=== PATIENT | female | born 2000 ===

== ENCOUNTER → 2020-03-23 20:37 | Outpatient (ROUT) | payer OTHER, SELFPAY ==
[2020-03-23 20:51] LABS: UR Morphine/Opiate cutoff 300 Negative (Negative); Ur Creatinine Normal (Normal); Ur Specific Gravity Normal (Normal); Urine Amphetamines Negative (Negative); Urine Barbiturates Negative (Negative); Urine Benzodiazepines Negative (Negative); Urine Cocaine Negative (Negative); Urine MDMA Negative (Negative); Urine Methadone Negative (Negative); Urine Methamphetamines Negative (Negative); Urine Oxycodone Negative (Negative); Urine Phencyclidine Negative (Negative); Urine Tetrahydrocannabinol Positive (Negative); Urine Tricyclic Antidepressant Negative (Negative); Urine pH Normal (Normal)
== END ==
PROVIDERS: Visit Provider Nurse Practitioner Obstetrics & Gynecology
DX: O99.322 Drug use complicating pregnancy, second trimester (principal); Z13.1 Encounter for screening for diabetes mellitus; Z3A.21 21 weeks gestation of pregnancy
CPT/HCPCS: 80305

== ENCOUNTER → 2020-07-04 16:03 | Outpatient (ROUT) | payer OTHER, SELFPAY | PROVIDERS: Visit Provider Nurse Practitioner Obstetrics & Gynecology | DX: Z34.90 Encounter for supervision of normal pregnancy, unspecified, unspecified trimester (principal); Z36.85 Encounter for antenatal screening for Streptococcus B; Z3A.36 36 weeks gestation of pregnancy | CPT/HCPCS: 87081 ==

== ENCOUNTER 2020-07-07 11:09 | Observation (INO) | payer OTHER, MEDICAID, SELFPAY ==
[2020-07-07 12:07] LABS: Add Manual Diff / Slide Review NO; Basophils Absolute Auto 100 /uL (0-100); Basophils Percent Auto 0.6 % (0-2); Eosinophils Absolute Auto 200 /uL (0-450); Eosinophils Percent Auto 1.4 % (2-4); Hematocrit 34.7 % (36-46); Hemoglobin 11.9 g/dL (12.0-16.0); Lymphocytes Absolute Auto 2200 /uL (1100-4500); Lymphocytes Percent Auto 17.6 % (25-40); Mean Corpuscular HGB Conc 34.3 % (30-36); Mean Corpuscular Hemoglobin 32.3 PG (26-34); Mean Corpuscular Volume 94.2 fL (80-100); Monocytes Absolute Auto 900 /uL (0-900); Monocytes Percent Auto 7.3 % (3-14); Neutrophils Absolute Auto 9000 /uL (1500-7000); Neutrophils Percent Auto 73.1 % (50-75); Platelet Count 182 X10^3/uL (150-400); Red Blood Cell Count 3.68 X10^6/uL (4.0-5.2); Red Cell Distribution Width 13.2 % (11.6-14.8); White Blood Cell Count 12.3 X10^3/uL (4.5-11.0)
[2020-07-07 13:19] LABS: COVID19 -Nasal RAPID Negative (Negative)
--- NOTE | 2020-07-07 14:45 | P.TNLD_ITS ---
Visit Information Visit Information Date of evaluation: 07/07/20 Primary OB Provider: Marla Irving On-call OB Provider: Lexis Chavez Reason for Evaluation: Yes other Comments/Additional reasons for admission: This patient is a 19yo @37+0 in complete breech presentation confirmed today on US, presenting for attempted external cephalic version. Patient has a posterior placenta, otherwise uncomplicated though late presentation to care. No complaints obstetrical or otherwise today. Discussed risk of placental abruption, cord accident, need for emergent delivery with ECV vs. risks of primary CS for breech if unsuccessful or if ECV not attempted. Patient vocalized understanding, all questions answered, informed consent signed. Vital Signs Vital Signs: 120/79, HR 67 Review of Systems Constitutional Constitutional: Reports system reviewed and no additional complaints, except as documented Cardiovascular Cardiovascular: Reports system reviewed and no additional complaints, except as documented Respiratory Respiratory: Reports system reviewed and no additional complaints, except as documented Gastrointestinal Gastrointestinal: Reports system reviewed and no additional complaints, except as documented Exam Const General: cooperative, healthy appearing and comfortable GI Palpation: soft and No tender Objective Labs Result Diagrams: 07/07/20 11:59 Labs: Laboratory Results - last 24 hr 07/07/20 07/07/20 07/07/20 11:59 11:59 11:59 WBC 12.3 H RBC 3.68 L Hgb 11.9 L Hct 34.7 L MCV 94.2 MCH 32.3 MCHC 34.3 RDW 13.2 Plt Count 182 Neut % (Auto) 73.1 Lymph % (Auto) 17.6 L [place] % (Auto) 7.3 Eos % (Auto) 1.4 L Baso % (Auto) 0.6 Neut # (Auto) 9000 H Lymph # (Auto) 2200 [place] # (Auto) 900 Eos # (Auto) 200 Baso # (Auto) 100 SARS-CoV-2 (PCR) Negative Blood Type A Positive Antibody Screen Negative Evaluation Evaluation Baseline heart rate: 130 Variability: Moderate (11-25) monitor accelerations: Present Monitor Decelerations: Absent Category of Tracing: Reactive Status: Category l Laboratory results: Laboratory Tests 07/07/20 07/07/20 07/07/20 11:59 11:59 11:59 WBC 12.3 H RBC 3.68 L Hgb 11.9 L Hct 34.7 L MCV 94.2 MCH 32.3 MCHC 34.3 RDW 13.2 Plt Count 182 Neut % (Auto) 73.1 Lymph % (Auto) 17.6 L [place] % (Auto) 7.3 Eos % (Auto) 1.4 L Baso % (Auto) 0.6 Neut # (Auto) 9000 H Lymph # (Auto) 2200 [place] # (Auto) 900 Eos # (Auto) 200 Baso # (Auto) 100 SARS-CoV-2 (PCR) Negative Blood Type A Positive Antibody Screen Negative Diagnosis, Plan/Disposition Plan/Disposition Plan: ECV unsuccesful. Patient had cat 1 monitoring x1 hour, precautions for return discussed at length, patient encouraged to call. Discussed CS at 39 weeks if no spontaneous version. OB Disposition: home
--- NOTE | 2020-07-07 14:51 | PM.PROC.1 ---
Procedures Date/Time Date of procedure: 07/07/20 Time of procedure: 13:21 General Procedure description: After informed consent was obtained, the patient underwent reassuring monitoring and had an IV placed and labs drawn. She was placed in the supine position, and position was confirmed with bedside ultrasound. The abdomen was covered in mineral oil, and ECV attempted x3 with minimal movement of vertex or rump. Further attempts were not thought to have a good chance of success, and the attempt was abandoned. position was again confirmed by US. The patient remained on L&D for monitoring.
== END 2020-07-07 15:00 | disposition home or self-care (01) ==
PROVIDERS: Nurse Practitioner Obstetrics & Gynecology; Admitting Provider Specialist; Referring Provider Specialist; Visit Provider Specialist
DX: O32.1XX0 Maternal care for breech presentation, not applicable or unspecified (principal); Z3A.37 37 weeks gestation of pregnancy; Z20.822 Contact with and (suspected) exposure to COVID-19
CPT/HCPCS: 59025; 59050; 59412; 76815; 85025; 86850; 86900; 86901; 87635; C9803; G0378; G0379

== ENCOUNTER 2020-07-23 11:35 | Inpatient (IN) | payer OTHER, MEDICAID, SELFPAY ==
[2020-07-23 12:20] LABS: Add Manual Diff / Slide Review NO; Basophils Absolute Auto 100 /uL (0-100); Basophils Percent Auto 0.8 % (0-2); Eosinophils Absolute Auto 100 /uL (0-450); Eosinophils Percent Auto 1.3 % (2-4); Hematocrit 35.1 % (36-46); Lymphocytes Absolute Auto 2100 /uL (1100-4500); Lymphocytes Percent Auto 17.8 % (25-40); Mean Corpuscular HGB Conc 34.1 % (30-36); Mean Corpuscular Volume 93.9 fL (80-100); Monocytes Absolute Auto 1000 /uL (0-900); Monocytes Percent Auto 8.4 % (3-14); Neutrophils Absolute Auto 8500 /uL (1500-7000); Neutrophils Percent Auto 71.7 % (50-75); Platelet Count 208 X10^3/uL (150-400); Red Blood Cell Count 3.74 X10^6/uL (4.0-5.2); Red Cell Distribution Width 13.3 % (11.6-14.8); White Blood Cell Count 11.9 X10^3/uL (4.5-11.0)
[2020-07-23] MEDS: LACTATED RINGERS 1,000 ML 300 ML IV (12:44)
[2020-07-23 12:49] VITALS: BP 128/84
--- NOTE | 2020-07-23 13:05 | P.HPOB_ITS ---
OB HPI Date/Time Date of admission: 07/23/20 Date Patient Seen: 07/23/20 Time Patient Seen: 11:30 History of Present Condition Chief complaint: OBSERVATION : 1 Para: 0 Estimated Date of Delivery: 07/28/20 Estimated Gestational Age (weeks): 39 Narrative: Magui Barry is a 19-year-old at 39 weeks 2 days with a fetus in known breech presentation status post failed external cephalic version, admitted for scheduled primary section. She reports feeling well today with no obstetrical symptoms or other concerns. presentation was confirmed today to be complete breech. The patient was cared for throughout her by Marla Irving CNM, and presented for care at 21 weeks 6 days. There were no complications in the and she has no other contributory medical or surgical history, though she has continued daily marijuana and tobacco use. She has had otherwise negative u tox screens during the . Indications Operative indications ( section): breech presentation History of Present Dating criteria: LMP confirmed by 2nd trimester US Obstetrical complications: none Medical complications: none Preadmission Labs Blood type: A (+) positive -: Antibody screen: negative, GBS status: negative, HBsAG: negative, HIV: negative and RPR/VDLR: negative -: Chlamydia screen: not detected and Gonorrhea screen: not detected -: Rubella: immune Integrated screen: declined Urine: mixed gram positive hina 1 hr GTT: 103 Evaluation Evaluation Baseline heart rate: 120 Variability: Moderate (11-25) monitor accelerations: Present Monitor Decelerations: Absent Category of Tracing: Reactive Status: Category l Laboratory results: Laboratory Tests 07/23/20 12:05 WBC 11.9 H RBC 3.74 L Hgb 12.0 Hct 35.1 L MCV 93.9 MCH 32.0 MCHC 34.1 RDW 13.3 Plt Count 208 Neut % (Auto) 71.7 Lymph % (Auto) 17.8 L [place] % (Auto) 8.4 Eos % (Auto) 1.3 L Baso % (Auto) 0.8 Neut # (Auto) 8500 H Lymph # (Auto) 2100 [place] # (Auto) 1000 H Eos # (Auto) 100 Baso # (Auto) 100 PFSH Social History Smoking Status: Current every day smoker Meds Home Medications and Allergies Home Medications Medication Instructions Recorded Confirmed Type No Known Home Medications 07/16/20 07/16/20 History Allergies Allergy/AdvReac Type Severity Reaction Status Date / Time No Known Drug Allergies Allergy Unverified 07/16/20 15:06 Review of Systems Constitutional Constitutional: Reports system reviewed and no additional complaints, except as documented Cardiovascular Cardiovascular: Reports system reviewed and no additional complaints, except as documented Respiratory Respiratory: Reports system reviewed and no additional complaints, except as documented Gastrointestinal Gastrointestinal: Reports system reviewed and no additional complaints, except as documented Genitourinary Genitourinary: Reports system reviewed and no additional complaints, except as documented Neurologic Neurologic: Reports system reviewed and no additional complaints, except as documented Exam Vital Signs (past 8 hours): - 07/23/20 12:49 Blood Pressure 128/84 Const General: cooperative, healthy appearing and comfortable Resp Effort & Inspection: normal respiratory effort Auscultation: clear to auscultation bilaterally Cardio Rate: regular rate Rhythm: regular rhythm GI Palpation: soft and No tender Extrem General: normal to inspection Objective Labs Result Diagrams: 07/23/20 12:05 Labs: Laboratory Results - last 24 hr 07/23/20 12:05 WBC 11.9 H RBC 3.74 L Hgb 12.0 Hct 35.1 L MCV 93.9 MCH 32.0 MCHC 34.1 RDW 13.3 Plt Count 208 Neut % (Auto) 71.7 Lymph % (Auto) 17.8 L [place] % (Auto) 8.4 Eos % (Auto) 1.3 L Baso % (Auto) 0.8 Neut # (Auto) 8500 H Lymph # (Auto) 2100 [place] # (Auto) 1000 H Eos # (Auto) 100 Baso # (Auto) 100 Assessment and Plan Assessment and Plan Assessment and Plan narrative: This patient is admitted for a primary section for complete breech presentation, with no other symptoms or concerns. She presented late for care and has continued tobacco and marijuana use daily, but has had no other obstetrical or medical complications. We discussed risks and benefits of surgery both last week and today, including risk of damage to bowel and bladder, bleeding requiring transfusion, infection, and placental abnormalities in future pregnancies. We also discussed risks of vaginal breech delivery. Informed consent was obtained and consents had previously been signed. Time Spent with Patient Total time spent with greater than 50% in coordination of care (as documented) at patient's floor/unit and/or counseling patient:: 15-24 minutes
[2020-07-23] MEDS: CEFAZOLIN 2 GM/100 ML FROZ.PIGGY IV (13:44)
--- NOTE | 2020-07-23 14:06 | SUR.OPER ---
Supine on Padded OR bed, head on pillow, safety belt at thigh, arms secured on padded arm boards at <90 degrees abduction. Bump under right buttock. Legs uncrossed with pillow under knees, gel pad to heels, tape over blanket to lower legs.
--- NOTE | 2020-07-23 14:11 | SUR.OPER ---
FHT 120 LIVE FEMALE BORN AT 1358
[2020-07-23 14:49] VITALS: BP 132/80; PULSE 80; RESP 12; O2SAT 99
[2020-07-23 14:53] VITALS: BP 140/86; PULSE 75; RESP 12; O2SAT 100
[2020-07-23 14:58] VITALS: BP 135/82; PULSE 73; RESP 12; O2SAT 100
[2020-07-23 15:05] VITALS: BP 137/80; PULSE 77; RESP 14; O2SAT 100
--- NOTE | 2020-07-23 16:19 | P.OP_ITS ---
Operative Date/Time/Diagnoses Date of procedure: 07/23/20 Time of procedure: 16:20 Pre-op diagnosis: Breech fetus Post-op diagnosis: same Procedure & Clinicians Procedure: Primary section Same procedure as scheduled: Yes Indications: Breech fetus Surgeon: Lexis Chavez Money Market Clerk: Chante Kapoor Reason for Money Market Clerk: Assistance with retraction, delivery of fetus Anesthesia Type: Spinal Operative Notes Findings: Normal uterus, tubes, ovaries. Female in complete breech presentation, Apgars 9 and 9, weight 2557 g Closure Type: primary Intraoperative meds administered: Acetaminophen, Ketorolac and Pitocin Applied: Catheter Estimated Blood Loss (mL): 750 Blood products transfused: none Procedure in detail: EBL: 750 cc Fluids: 900 cc lactated Ringer's UOP: 300 cc clear yellow urine Procedures: The patient was taken to the operating room where spinal anesthesia was placed and found to be adequate. She was prepped and draped in the normal sterile fashion in the dorsal supine position with a leftward tilt. A Pfannenstiel skin incision was made with a scalpel and carried through to the underlying layer of fascia. The fascia was incised in the midline and the incision extended laterally with Singer scissors. The superior aspect of this incision was grasped with Nithya clamps, elevated, and the underlying rectus muscles dissected off bluntly and with the curved Singer scissors. Attention was then turned to the inferior aspect of this incision which, in a similar fashion, was grasped, tented up with the Nithya clamps, and the rectus muscles dissected off bluntly and with the curved Singer scissors. The rectus muscles were then in the midline, and the peritoneum identified, tented up, and entered sharply with Metzenbaum scissors. The peritoneal incision was extended superiorly and inferiorly with good visualization of the bladder. The bladder blade was inserted and the vesicouterine peritoneum identified, grasped with pickups, and entered sharply with the Metzenbaum scissors. This incision was extended laterally, and the bladder flap created digitally. The bladder blade was then reinserted and the lower uterine segment incised in transverse fashion with the scalpel. The uterine incision was bluntly extended laterally. The bladder blade was removed, and the was delivered leave you the usual breech maneuvers. After 30 seconds of delayed cord clamping, the cord was clamped and cut. The nose and mouth were suctioned as needed with a bulb syringe, and the was handed off to awaiting pediatricians. The placenta was then removed spontaneously, and the uterus was exteriorized and cleared of all clots and debris. The uterine incision was repaired with 1-0 chromic in a running, locked fashion and a 2nd layer of the same suture was used to obtain excellent hemostasis. The uterus was returned to the abdomen, and the gutters were cleared of all clots and debris. The bladder flap was closed with 2-0 Vicryl in a running fashion, the peritoneum was closed with 3-0 Vicryl, and the fascia reapproximated with 0 Vicryl in a running fashion. The subcutaneous layer was placed with 3 0 Vicryl in an interrupted fashion and the skin was closed with 4-0 biosyn in a running fashion. The patient tolerated the procedure well. sponge lap and needle counts were correct x2. 2 g of Ancef were given at commencement of the case. The patient was taken to the recovery room in stable condition. Complications: none Only Baby Rosalie: Gender: Male Presentation: breech Details: complete Placental Delivery Description: Manual Removal Cord Vessel Description: 3 Vessels score (1 min): 9 score (5 min): 9 weight: 5 lb 10 oz Post-operative Condition: stable Disposition: PACU Aftercare: routine postop
[2020-07-23] MEDS: LACTATED RINGERS 1,000 ML 100 ML IV (18:59)
[2020-07-23] MEDS: METOCLOPRAMIDE 10 MG/2 ML INJ IV (18:59)
[2020-07-23] MEDS: KETOROLAC 30 MG/ML VIAL IV (21:11)
[2020-07-24] MEDS: KETOROLAC 30 MG/ML VIAL IV ×2 (03:06→09:07)
[2020-07-24 05:52] LABS: Add Manual Diff / Slide Review NO; Basophils Absolute Auto 0 /uL (0-100); Basophils Percent Auto 0.3 % (0-2); Eosinophils Absolute Auto 100 /uL (0-450); Eosinophils Percent Auto 1.4 % (2-4); Hematocrit 29.2 % (36-46); Hemoglobin 10.2 g/dL (12.0-16.0); Lymphocytes Absolute Auto 2100 /uL (1100-4500); Lymphocytes Percent Auto 19.9 % (25-40); Mean Corpuscular HGB Conc 35.1 % (30-36); Mean Corpuscular Hemoglobin 33.1 PG (26-34); Mean Corpuscular Volume 94.3 fL (80-100); Monocytes Absolute Auto 900 /uL (0-900); Monocytes Percent Auto 9.1 % (3-14); Neutrophils Absolute Auto 7200 /uL (1500-7000); Neutrophils Percent Auto 69.3 % (50-75); Platelet Count 144 X10^3/uL (150-400); Red Blood Cell Count 3.09 X10^6/uL (4.0-5.2); Red Cell Distribution Width 13.4 % (11.6-14.8); White Blood Cell Count 10.4 X10^3/uL (4.5-11.0)
[2020-07-24 08:39] VITALS: BP 128/84
[2020-07-24] MEDS: OXYCODONE IR 5 MG TABLET PO ×2 (09:07→20:29)
[2020-07-24] MEDS: DOCUSATE 250 MG CAPSULE PO (09:07)
--- NOTE | 2020-07-24 09:30 | PM.OBPN.1 ---
Subjective - OB Subjective Patient comments: no complaints, pain well controlled and tolerating diet baby status: doing well and nursing well feeding status: exclusively breast feeding Narrative: Patient POD#1 s/p scheduled CS for breech presenttation. Reports feeling well with good pain control this AM. Tolerating PO, ambulating, voiding, mild lochia. Has not yet passed flatus but no bloating or nausea. Date Patient Seen: 07/24/20 Time Patient Seen: 09:31 Exam Vital Signs (past 8 hours): 128/64, HR 100 07/24/20 08:39 Blood Pressure 128/84 Oxygen Delivery Method Room Air Const General: cooperative, healthy appearing and comfortable Resp Effort & Inspection: normal respiratory effort Auscultation: clear to auscultation bilaterally Cardio Rate: regular rate Rhythm: regular rhythm GI Inspection: incision (c/d/i, aquacell present) Palpation: soft and No tender Extrem General: normal to inspection Objective Labs Result Diagrams: 07/24/20 05:40 Labs: Laboratory Results - last 24 hr 07/24/20 05:40 WBC 10.4 RBC 3.09 L Hgb 10.2 L Hct 29.2 L MCV 94.3 MCH 33.1 MCHC 35.1 RDW 13.4 Plt Count 144 L Neut % (Auto) 69.3 Lymph % (Auto) 19.9 L [place] % (Auto) 9.1 Eos % (Auto) 1.4 L Baso % (Auto) 0.3 Neut # (Auto) 7200 H Lymph # (Auto) 2100 [place] # (Auto) 900 Eos # (Auto) 100 Baso # (Auto) 0 Assessment & Plan Plan day: 1 plan OB: routine postop care Comments: Patient recovering well, meeting postoperative goals appropriately. Ambulation encouraged. Discussed discharge instructions, anticipating discharge tomorrow. Time Spent With Patient Time: Total time spent is greater than 50% in coordination of care (as documented) at patient's floor/unit and/or counseling patient: Time with patient: 15-24 minutes
[2020-07-24] MEDS: IBUPROFEN 600 MG TABLET PO ×2 (15:03→20:29)
[2020-07-24] MEDS: ACETAMINOPHEN 325 MG TABLET 650 MG PO ×2 (15:03→20:30)
[2020-07-25] MEDS: OXYCODONE IR 5 MG TABLET PO ×3 (00:57→12:28)
[2020-07-25] MEDS: ACETAMINOPHEN 325 MG TABLET 650 MG PO ×2 (03:51→10:09)
[2020-07-25] MEDS: IBUPROFEN 600 MG TABLET PO ×2 (03:52→10:09)
[2020-07-25] MEDS: DOCUSATE 250 MG CAPSULE PO (07:46)
--- NOTE | 2020-08-09 11:14 | PM.OBDS.1 ---
Discharge Providers Provider Date of admission: 07/23/20 11:35 Discharge Date: 07/25/20 Primary care physician: Doctor Flynn MD Consults: 07/23/20 15:01 Consult to Security Management Specialist Routine Comment: 07/23/20 16:13 Consult to Security Management Specialist Routine Comment: Discharge provider: Lexis Chavez MD Summary Hospital Course Date Patient Seen: 07/23/20 Time Patient Seen: 08:15 Diagnoses: Primary section Hospital Course: This patient was admitted for primary section in the setting of breech presentation. Surgery was uncomplicated, and she was delivered of a healthy baby boy without complication. Her postoperative course was uncomplicated, and she was discharged on postop day 2 with routine precautions and follow-up. Peripartum Data Infant Delivery Method: Section complications: none [place] 1: Gender: Male Disposition of : home Status at Discharge Cognitive/behavioral status at discharge: oriented Functional status at discharge: independent ambulation Overall status at discharge: patient is progressing back to baseline Time Spent with Patient Time attestation: Total time spent providing and/or coordinating discharge services: Time spent: Less than 30 minutes Objective Labs Result Diagrams: 07/24/20 05:40 Exam Vital Signs (past 8 hours): Vital signs stable Oxygen Delivery Method Room Air Const General: cooperative, healthy appearing, comfortable and well groomed Resp Effort & Inspection: normal respiratory effort Auscultation: clear to auscultation bilaterally Cardio Rate: regular rate Rhythm: regular rhythm GI Inspection: incision (C/D/I) Palpation: soft and No tender (Fundus firm, below U) Extrem General: normal to inspection Discharge Plan Discharge Plan Patient Disposition: Home Provider Discharge Comment: Call with fever, chills, redness or drainage around the incision, or bleeding vaginally more than a pad in an hour Tylenol 650 mg every 6 hours Ibuprofen 600 mg every 6 hours 6 Stool softeners as needed until bowel returned to normal Discharge orders & Medications Prescriptions: New oxycodone 5 mg tablet 5 mg PO Q6H PRN (Reason: pain) Qty: 14 RF: 0 No Action No Known Home Medications RF: 0 Follow up/Referrals: Chante Kapoor MD [Physician] - 1 Week Diet/Activity/Treatments Diet: Regular Activity: Nothing in the vagina for 6 weeks. Avoid lifting more than 10 lbs for 6 weeks. If you have increasing bleeding, fevers, chills, nausea, vomiting, persistent headaches or visual changes, or any other symptoms or concerns, call the office or come to the emergency room. Skin/Wound/Dressing Care Report to your healthcare provider any signs of infection, such as:: chills, fever, increased pain, unusual drainage and unusual redness Dressing: Do not remove for 1 week Visit Report/Discharge Packet Instructions: DI for , DI for Prescription Opioid Use Stand Alone Forms: Discharge: Care Discharge Data Primary Care Provider: Miscellaneous,Doctor
== END 2020-07-25 12:43 | disposition home or self-care (01) | DRG 787 ==
PROVIDERS: Admitting Provider Obstetrics & Gynecology; Referring Provider Obstetrics & Gynecology; Visit Provider Obstetrics & Gynecology
PROC: 10D00Z1 Extraction of Products of Conception, Low, Open Approach (ICD-10-PCS; CPT 59514; principal; 2020-07-23 13:30)
DX: O64.1XX0 Obstructed labor due to breech presentation, not applicable or unspecified (principal); O99.324 Drug use complicating childbirth; F12.90 Cannabis use, unspecified, uncomplicated; O99.334 Smoking (tobacco) complicating childbirth; F17.210 Nicotine dependence, cigarettes, uncomplicated; Z3A.39 39 weeks gestation of pregnancy; Z37.0 Single live birth
CPT/HCPCS: 36415; 59050; 59514; 85025; 86850; 86900; 86901; 87635; J0690; J1885; J2274; J2590; J2765; J3010